=== PATIENT | male | born 1980 | race African-American/Black ===

== ENCOUNTER 2017-05-11 17:05 | Emergency (ER) | payer OTHER ==
[~2017-05-11] VITALS: Ht 182.9 cm; Wt 75.7 kg
[~2017-05-11 17:05] MED LIST: KEFLEX500 MG PO; TRAMADOL HCL50 MG PO
[2017-05-11 17:34] VITALS: BP 114/83
[2017-05-11] MEDS ORDERED: CLEOCIN300 MG PO (20:35)
[2017-05-11] MEDS ORDERED: ULTRAM50 MG PO (20:35)
== END 2017-05-11 21:02 | disposition home or self-care (01) ==
LOC: EME 17:05 → EXP 17:05
DX: L02.91 Cutaneous abscess, unspecified (principal); R59.0 Localized enlarged lymph nodes; J02.9 Acute pharyngitis, unspecified; F17.200 Nicotine dependence, unspecified, uncomplicated
CPT/HCPCS: 99281; 99283